=== PATIENT | female | born 1995 | race Caucasian/White ===

== ENCOUNTER 2024-07-10 15:59 | Emergency (ER) | payer OTHER ==
[2024-07-10 16:20] VITALS: BP 124/77; PULSE 88; RESP 20; TEMP 98.2; BMI 25.8
[2024-07-10] MEDS ORDERED: predniSONE 20 MG TABLET (UD) ONE (17:17)
[2024-07-10] MEDS ORDERED: ALBUTEROL SO4 2.5/IPRATROPIUM 0.5 INH SOL 3 ML VIAL.NEB. NEB ONE (17:17)
[2024-07-10] MEDS: ALBUTEROL SO4 2.5/IPRATROPIUM 0.5 INH SOL 3 ML VIAL.NEB. NEB ONE (17:22)
[2024-07-10] MEDS: predniSONE 20 MG TABLET (UD) PO ONE (17:22)
[2024-07-10] MEDS: DEXTROMETHORPHAN/PROMETHAZINE 15 MG/6.25 MG/5 ML SYRUP PO ONE (17:47)
[2024-07-10] MEDS ORDERED: AMOX TR/POT CLAV 875MG/125MG TABLETS (FP) ONE (18:03)
[2024-07-10] MEDS: AMOX TR/POT CLAV 875MG/125MG TABLETS (FP) PO ONE (18:06)
== END 2024-07-10 18:08 | disposition home or self-care (01) ==
LOC: JERFT 15:59
PROC: 3E0F7GC Introduction of Other Therapeutic Substance into Respiratory Tract, Via Natural or Artificial Opening (ICD-10-PCS; principal; 2024-07-10)
DX: J01.90 Acute sinusitis, unspecified (principal); J40 Bronchitis, not specified as acute or chronic; J98.01 Acute bronchospasm; R05.9 Cough, unspecified; R09.81 Nasal congestion; Z20.822 Contact with and (suspected) exposure to COVID-19
CPT/HCPCS: 0241U-QW; 71046-TC-FY; 99284-25

== ENCOUNTER 2024-08-30 00:02 | Emergency (ER) | payer OTHER ==
[2024-08-30 00:08] VITALS: BP 116/86; PULSE 86; RESP 16; TEMP 98.6; BMI 25.0
[2024-08-30] MEDS ORDERED: CLINDAMYCIN HCL 150 MG CAPSULE (FP) ONE (01:33)
[2024-08-30] MEDS: CLINDAMYCIN HCL 150 MG CAPSULE (FP) PO ONE (01:50)
== END 2024-08-30 01:53 | disposition home or self-care (01) ==
LOC: JER 00:02
PROC: 0X940ZX Drainage of Right Axilla, Open Approach, Diagnostic (ICD-10-PCS; principal; 2024-08-30)
DX: L02.411 Cutaneous abscess of right axilla (principal); M79.89 Other specified soft tissue disorders; M79.621 Pain in right upper arm
CPT/HCPCS: 87070; 87186; 87205; 99283-25